=== PATIENT | male | born 1990 | race Caucasian/White ===

== ENCOUNTER 2020-09-01 20:11 | Emergency (ER) | payer OTHER ==
[~2020-09-01] VITALS: Ht 177.8 cm; Wt 106.6 kg
[2020-09-01] MEDS ORDERED: OMEPRAZOLE 20 M20 M1 PO (20:33)
[2020-09-01] MEDS ORDERED: BUSPIRONE HCL10 MG PO (20:33)
[2020-09-01] MEDS ORDERED: METOPROLOL SUCC50 MG PO (20:34)
[2020-09-01] MEDS ORDERED: FLEXERIL PO (20:38)
[2020-09-01] MEDS ORDERED: IBUPROFEN 800800 M1 PO (20:38)
[2020-09-01] MEDS ORDERED: MEDROLDOSEPACK PO (20:38)
[2020-09-01] MEDS ORDERED: ONDANSETRON ODT4 MG PO (20:38)
[2020-09-01 21:56] VITALS: BP 155/92
== END 2020-09-01 21:56 | disposition home or self-care (01) ==
LOC: M.ERS 20:11
DX: S16.1XXA Strain of muscle, fascia and tendon at neck level, initial encounter (principal); S00.03XA Contusion of scalp, initial encounter; M25.512 Pain in left shoulder; R11.0 Nausea; R42 Dizziness and giddiness; I10 Essential (primary) hypertension; E78.5 Hyperlipidemia, unspecified; Z90.89 Acquired absence of other organs; Z90.49 Acquired absence of other specified parts of digestive tract; Z79.899 Other long term (current) drug therapy; Z88.1 Allergy status to other antibiotic agents; Z88.0 Allergy status to penicillin; V43.52XA Car driver injured in collision with other type car in traffic accident, initial encounter; Y93.I9 Activity, other involving external motion; Y92.488 Other paved roadways as the place of occurrence of the external cause; Y99.8 Other external cause status